=== PATIENT | female | born 1940 | race Caucasian/White ===

== ENCOUNTER 2018-10-08 09:24 | Inpatient (IN) | payer MEDICARE, OTHER ==
[2018-10-08] MEDS: LACTATED RINGER'S 1,000 ML IV ×3 (08:00→23:32)
[2018-10-08] MEDS: ACETAMINOPHEN 500 MG TAB PO (08:00)
[2018-10-08] MEDS: DEXAMETHASONE 4 MG/ML 1 ML INJ IV (10:50)
[2018-10-08] MEDS: SOD CHLORIDE 0.9% 1,000 ML IV (10:56)
[2018-10-08] MEDS ORDERED: HYDROmorphONE 1 MG/5 ML IV SYRINGE IV ×2 (12:00)
[2018-10-08] MEDS ORDERED: hydrALAzine 20 MG INJ IV (12:00)
[2018-10-08] MEDS ORDERED: FENTAnyl 50 MCG/ML VIAL IV ×2 (12:00)
[2018-10-08] MEDS ORDERED: OXYCODONE/ACETAMINOPHEN (5/325) TAB PO ×2 (12:00)
[2018-10-08] MEDS ORDERED: DIPHENHYDRAMINE 50 MG INJ IV (12:00)
[2018-10-08] MEDS ORDERED: EPHEDrine 25 MG/5 ML SYG IV (12:00)
[2018-10-08] MEDS ORDERED: IPRATROPIUM (NEB) 0.5 MG/2.5 ML AMP HHN (12:00)
[2018-10-08] MEDS ORDERED: TRIMETHOBENZAMIDE 100 MG/ML VIAL IM (12:00)
[2018-10-08] MEDS ORDERED: MEPERIDINE 25 MG INJ IV (12:00)
[2018-10-08] MEDS ORDERED: ALBUTEROL 0.083% (NEB) 2.5 MG/3 ML AMP HHN (12:00)
[2018-10-08] MEDS ORDERED: LABETALOL HCL 20MG INJ IV (12:00)
[2018-10-08] MEDS ORDERED: SUGAMMADEX SODIUM 200 MG/2 ML VIAL IV (12:10)
[2018-10-08] MEDS ORDERED: FENTAnyl 50 MCG/ML VIAL ×2 (12:10)
[2018-10-08] MEDS ORDERED: CEFAZOLIN 1 GM INJ (12:10)
[2018-10-08] MEDS ORDERED: MIDAZOLAM 1 MG/ML 2 ML INJ (12:10)
[2018-10-08] MEDS ORDERED: ROCURONIUM 50 MG INJ (12:10)
[2018-10-08] MEDS ORDERED: NEOSTIGMINE 3 MG/3 ML SYRINGE (12:10)
[2018-10-08] MEDS ORDERED: DEXAMETHASONE 4 MG/ML 5 ML INJ (12:10)
[2018-10-08] MEDS ORDERED: TRANEXAMIC ACID 1 GM/100 ML (PMX) (12:10)
[2018-10-08] MEDS ORDERED: PROPOFOL 20 ML (12:10)
[2018-10-08] MEDS ORDERED: ONDANSETRON 4 MG INJ (12:10)
[2018-10-08] MEDS ORDERED: ROPIVACAINE 0.5 % 30 ML VIAL (12:10)
[2018-10-08] MEDS ORDERED: GLYCOPYRROLATE 0.4 MG INJ (12:10)
[2018-10-08] MEDS: ACETAMINOPHEN 1000MG/100ML IV 100 ML IVPB (13:17)
[2018-10-08] MEDS: CEFAZOLIN 2 GM/50 ML (PMX) 50 ML IVPB (14:04)
[2018-10-08] MEDS: TRANEXAMIC ACID 1GM/100ML(PMX) 100 ML PRE-OP X1 IVPB (14:25)
[2018-10-08] MEDS: POLYMYXIN B 500000 UNIT INJ (14:40)
[2018-10-08] MEDS: BACITRACIN 50000 UNITS INJ (14:40)
[2018-10-08] MEDS: TRANEXAMIC ACID 1GM/100ML(PMX) 100 ML INTRA-OP X1 IVPB (14:43)
[2018-10-08] MEDS ORDERED: GELATIN SIZE 100 SPONGE (14:44)
[2018-10-08] MEDS ORDERED: THROMBIN 5000 UNIT VIAL (14:45)
[2018-10-08] MEDS ORDERED: MAGNESIUM HYDROXIDE 30ML CUP PO (16:00)
[2018-10-08] MEDS: CEFAZOLIN 1 GM/50 ML (PMX) 50 ML IVPB ×2 (16:52→23:32)
[2018-10-08] MEDS: FENTAnyl 50 MCG/ML VIAL IV ×2 (16:54→17:11)
[2018-10-08] MEDS: ONDANSETRON 4 MG INJ IV (16:54)
[2018-10-08] MEDS: HYDROmorphONE 1 MG/5 ML IV SYRINGE IV ×2 (16:55→17:10)
[2018-10-08] MEDS: MIDAZOLAM 1 MG/ML 2 ML INJ IV (17:09)
[2018-10-08] MEDS: oxyCODONE 5 MG TAB PO ×2 (18:42→22:44)
[2018-10-08] MEDS ORDERED: GLUCOSE GEL 15 GRAM TUBE BUCCAL (19:30)
[2018-10-08] MEDS ORDERED: GLUCAGON 1 MG INJ IM (19:30)
[2018-10-08] MEDS ORDERED: DEXTROSE 50% 50 ML SYRINGE IV ×2 (19:30)
[2018-10-08] MEDS ORDERED: GLUCOSE GEL 15 GRAM TUBE PO ×2 (19:30)
[2018-10-08] MEDS: hydrALAzine 20 MG INJ IV (19:59)
[2018-10-08] MEDS: GABAPENTIN 100 MG CAP NGT (20:14)
[2018-10-08] MEDS: GABAPENTIN 300 MG CAP PO (20:35)
[2018-10-08] MEDS: BUMETANIDE 0.5 MG TAB PO (20:35)
[2018-10-08] MEDS: PREGABALIN 50 MG CAP PO (20:35)
[2018-10-08] MEDS: FLUTICASONE 0.05% 16 GM NAS SPRAY NASAL (20:52)
[2018-10-08] MEDS: INSULIN ASPART [NOVOLOG] 3 ML PEN SC (20:55)
[2018-10-09] MEDS: ACCU-CHEK XX (02:50)
[2018-10-09 05:28] LABS: HEMATOCRIT 32.1 % (37.0-47.0); HEMOGLOBIN 10.6 g/dl (12.0-16.0)
[2018-10-09 06:20] LABS: ANION GAP 8 (5-13); BLOOD UREA NITROGEN 26 mg/dl (7-20); CALCIUM 8.3 mg/dl (8.4-10.2); CARBON DIOXIDE 27 mmol/L (21-31); CHLORIDE 105 mmol/L (97-110); CREATININE 0.65 mg/dl (0.44-1.00); GLUCOSE 205 mg/dl (70-220); POTASSIUM 4.3 mmol/L (3.5-5.1); SODIUM 140 mmol/L (135-144)
[2018-10-09] MEDS: oxyCODONE 5 MG TAB PO ×3 (06:59→20:08)
[2018-10-09] MEDS ORDERED: AL HYDROX/MG HYDROX/SIMETH 30 ML CUP PO (07:30)
[2018-10-09] MEDS: PANTOPRAZOLE (EC) 40 MG TAB PO (08:02)
[2018-10-09] MEDS: INSULIN ASPART [NOVOLOG] 3 ML PEN SC ×4 (08:48→20:23)
[2018-10-09] MEDS: FLUTICASONE 0.05% 16 GM NAS SPRAY NASAL ×2 (08:50→21:00)
[2018-10-09] MEDS: CEFAZOLIN 1 GM/50 ML (PMX) 50 ML IVPB (08:51)
[2018-10-09] MEDS: PREGABALIN 50 MG CAP PO ×3 (08:51→20:08)
[2018-10-09] MEDS: OXYBUTYNIN (XL) 5 MG TAB PO (08:51)
[2018-10-09] MEDS: MELOXICAM 7.5 MG TAB PO (08:51)
[2018-10-09] MEDS: GABAPENTIN 300 MG CAP PO ×3 (08:52→20:07)
[2018-10-09] MEDS: ASPIRIN 81 MG TAB PO (08:52)
[2018-10-09] MEDS: GABAPENTIN 100 MG CAP NGT ×3 (08:53→21:00)
[2018-10-09] MEDS: BUMETANIDE 0.5 MG TAB PO (08:56)
[2018-10-09] MEDS ORDERED: ASPIRIN 81 MG TAB PO (09:00)
[2018-10-09] MEDS: INSULIN GLARGINE [LANTus] (100 UNITS/ML) SYG SC (20:21)
[2018-10-10] MEDS: ACCU-CHEK XX (02:00)
[2018-10-10] MEDS: oxyCODONE 5 MG TAB PO ×2 (02:27→06:44)
[2018-10-10 04:50] LABS: ADD MAN DIFF? NO
[2018-10-10 04:58] LABS: BASOPHILS % 0.1 % (0.0-2.0); EOSINOPHILS # 0.1 10^3/ul (0.0-0.5); EOSINOPHILS % 0.9 % (0.0-7.0); HEMATOCRIT 30.6 % (37.0-47.0); HEMOGLOBIN 9.7 g/dl (12.0-16.0); LYMPHOCYTES # 1.2 10^3/ul (0.8-2.9); LYMPHOCYTES % 15.3 % (15.0-51.0); MEAN CORPUSCULAR HEMOGLOBIN 27.8 pg (29.0-33.0); MEAN CORPUSCULAR HGB CONC 31.7 g/dl (32.0-37.0); MEAN CORPUSCULAR VOLUME 87.7 fl (82.0-101.0); MEAN PLATELET VOLUME 11.1 fl (7.4-10.4); MONOCYTE # 0.6 10^3/ul (0.3-0.9); NEUTROPHILS % 75.2 % (39.0-77.0); PLATELET COUNT 274 10^3/UL (140-415); RED BLOOD COUNT 3.49 10^6/ul (4.20-5.40); RED CELL DISTRIBUTION WIDTH 14.8 % (11.5-14.5)
[2018-10-10 04:58] LABS: WHITE BLOOD COUNT 7.9 10^3/ul (4.8-10.8)
[2018-10-10 05:38] LABS: ANION GAP 8 (5-13); BLOOD UREA NITROGEN 24 mg/dl (7-20); CALCIUM 8.4 mg/dl (8.4-10.2); CARBON DIOXIDE 29 mmol/L (21-31); CHLORIDE 104 mmol/L (97-110); CREATININE 0.61 mg/dl (0.44-1.00); GLUCOSE 184 mg/dl (70-220); POTASSIUM 3.9 mmol/L (3.5-5.1); SODIUM 141 mmol/L (135-144)
[2018-10-10] MEDS: FLUTICASONE 0.05% 16 GM NAS SPRAY NASAL ×2 (08:37→20:40)
[2018-10-10] MEDS: INSULIN ASPART [NOVOLOG] 3 ML PEN SC ×4 (08:37→20:42)
[2018-10-10] MEDS: BUMETANIDE 0.5 MG TAB PO (09:35)
[2018-10-10] MEDS: OXYBUTYNIN (XL) 5 MG TAB PO (09:35)
[2018-10-10] MEDS: PREGABALIN 50 MG CAP PO ×3 (09:35→20:37)
[2018-10-10] MEDS: GABAPENTIN 300 MG CAP PO ×3 (09:36→20:37)
[2018-10-10] MEDS: MELOXICAM 7.5 MG TAB PO (09:36)
[2018-10-10] MEDS: ASPIRIN 81 MG TAB PO (09:37)
[2018-10-10] MEDS: KETOROLAC 15 MG INJ IV ×2 (11:20→17:36)
[2018-10-10] MEDS ORDERED: oxyCODONE 5 MG TAB PO (12:00)
[2018-10-10] MEDS: INSULIN GLARGINE [LANTus] (100 UNITS/ML) SYG SC (20:43)
[2018-10-11] MEDS: ACCU-CHEK XX (02:00)
[2018-10-11 04:57] LABS: ADD MAN DIFF? NO
[2018-10-11 05:02] LABS: BASOPHILS % 0.1 % (0.0-2.0); EOSINOPHILS # 0.1 10^3/ul (0.0-0.5); EOSINOPHILS % 1.4 % (0.0-7.0); HEMATOCRIT 29.7 % (37.0-47.0); HEMOGLOBIN 9.6 g/dl (12.0-16.0); LYMPHOCYTES % 13.6 % (15.0-51.0); MEAN CORPUSCULAR HEMOGLOBIN 27.9 pg (29.0-33.0); MEAN CORPUSCULAR HGB CONC 32.3 g/dl (32.0-37.0); MEAN CORPUSCULAR VOLUME 86.3 fl (82.0-101.0); MEAN PLATELET VOLUME 10.9 fl (7.4-10.4); MONOCYTE # 0.6 10^3/ul (0.3-0.9); MONOCYTES % 8.6 % (0.0-11.0); NEUTROPHIL # 5.6 10^3/ul (1.6-7.5); NEUTROPHILS % 75.8 % (39.0-77.0); PLATELET COUNT 266 10^3/UL (140-415); RED BLOOD COUNT 3.44 10^6/ul (4.20-5.40); RED CELL DISTRIBUTION WIDTH 14.6 % (11.5-14.5)
[2018-10-11 05:02] LABS: WHITE BLOOD COUNT 7.4 10^3/ul (4.8-10.8)
[2018-10-11] MEDS: KETOROLAC 15 MG INJ IV (05:26)
[2018-10-11] MEDS: ASPIRIN 81 MG TAB PO (08:57)
[2018-10-11] MEDS: OXYBUTYNIN (XL) 5 MG TAB PO (08:57)
[2018-10-11] MEDS: GABAPENTIN 300 MG CAP PO ×2 (08:57→13:09)
[2018-10-11] MEDS: PREGABALIN 50 MG CAP PO ×2 (08:57→13:12)
[2018-10-11] MEDS: MELOXICAM 7.5 MG TAB PO (08:57)
[2018-10-11] MEDS: PANTOPRAZOLE (EC) 40 MG TAB PO (08:57)
[2018-10-11] MEDS: BUMETANIDE 0.5 MG TAB PO (08:57)
[2018-10-11] MEDS: FLUTICASONE 0.05% 16 GM NAS SPRAY NASAL (08:58)
[2018-10-11] MEDS ORDERED: PANTOPRAZOLE (EC) 40 MG TAB PO (09:00)
[2018-10-11] MEDS: INSULIN ASPART [NOVOLOG] 3 ML PEN SC ×2 (09:04→13:09)
[2018-10-11] MEDS: oxyCODONE 5 MG TAB PO (10:52)
== END 2018-10-11 14:15 | disposition home or self-care (01) | DRG 483 ==
LOC: REC 09:24 → MS1 18:20
PROVIDERS: Orthopaedic Surgery
PROC: 0RRJ0JZ Replacement of Right Shoulder Joint with Synthetic Substitute, Open Approach (ICD-10-PCS; principal; 2018-10-08 11:30)
DX: M19.011 Primary osteoarthritis, right shoulder (principal); I10 Essential (primary) hypertension; E78.5 Hyperlipidemia, unspecified; E11.9 Type 2 diabetes mellitus without complications; J44.9 Chronic obstructive pulmonary disease, unspecified; Z72.0 Tobacco use
CPT/HCPCS: 71045; 80048; 82962; 85014; 85018; 85025; 86850; 86900; 86901; 87081; 88304; 88311; 93971; 97161; 97165